=== PATIENT | female | born 1995 | race Two or more races ===

== ENCOUNTER 2024-12-08 09:10 | Outpatient (CLI) | payer OTHER | END 2024-12-08 09:11 | disposition home or self-care (01) | LOC: PRENATAL 09:10 | DX: O44.00 Complete placenta previa NOS or without hemorrhage, unspecified trimester (principal); Z3A.20 20 weeks gestation of pregnancy ==

== ENCOUNTER 2025-01-30 13:09 | Outpatient (CLI) | payer OTHER | END 2025-01-30 13:10 | disposition home or self-care (01) | LOC: PRENATAL 13:09 | PROVIDERS: ATTEND Obstetrics & Gynecology Maternal & Fetal Medicine | DX: O26.849 Uterine size-date discrepancy, unspecified trimester (principal); O36.8130 Decreased fetal movements, third trimester, not applicable or unspecified; Z3A.28 28 weeks gestation of pregnancy ==

== ENCOUNTER → 2025-03-11 09:59 | Outpatient (CLI) | payer OTHER | END | disposition home or self-care (01) | LOC: PRENATAL 09:59 | PROVIDERS: ATTEND Obstetrics & Gynecology Maternal & Fetal Medicine | DX: O26.849 Uterine size-date discrepancy, unspecified trimester (principal); O36.8130 Decreased fetal movements, third trimester, not applicable or unspecified; Z3A.34 34 weeks gestation of pregnancy ==